=== PATIENT | male | born 1985 | race Hispanic/Latino ===

== ENCOUNTER 2022-10-17 07:16 | Observation (INO) | payer SELFPAY ==
[2022-10-17] VITALS (7 sets, daily range): BP systolic 116–130; BP diastolic 69–84; PULSE 74–102; RESP 16–18; TEMP 37.1–38.8; O2SAT 96–100
--- NOTE | ~2022-10-17 | XR_ITS ---
EXAMINATION: XR chest 1V portable INDICATION: Fever, lethargy TECHNIQUE: Portable AP chest at 0757 hours COMPARISON: None available FINDINGS: The lungs are free of acute opacities. No pleural effusion or pneumothorax. The cardiomedia stinal silhouette is normal. IMPRESSION: 1. No acute cardiopulmonary abnormality. Reviewed, dictated and finalized at location A.
--- NOTE | ~2022-10-17 | CT_ITS ---
EXAMINATION: CT abdomen pelvis w con DATE: 10/17/2022 11:24 INDICATION: Abdominal pain. TECHNIQUE: Computed tomography (CT) of the abdomen and pelvis was performed with 100 mL Omnipaque 350 intravenous contrast. Automated exposure control and iterative reconstruction technique were employe d. The dose-length product was 344.53 mGy-cm. COMPARISON: None. FINDINGS: The visualized portions of the lung bases demonstrate mild atelectasis. No pleural effusion . The heart size is normal. No pericardial effusion. The liver, gallbladder, spleen, pancreas, adrena l glands, and kidneys are normal. There are no dilated loops of bowel. The appendix is normal. There are no pathologically enlarged lymph nodes. There is no free intraperitoneal fluid. There is mild tho racolumbar spondylosis. IMPRESSION: 1. No etiology for the patient's symptoms. Reviewed, dictated and finalized at location A.
[2022-10-17 08:16] LABS: Appearance Urine Clear (Clear); Bilirubin Urine Negative (Negative); Blood Urine Negative (Negative); Color Urine Yellow (Yellow); Glucose Urine UA Negative (Negative); Ketones Urine Negative (Negative); Leukocyte Esterase Ur Negative LEU/UL (Negative); Nitrate Urine Negative (Negative); Protein Urine Negative (Negative); Specific Grav Ur 1.016 (1.001-1.035)
[2022-10-17 08:17] LABS: Hematocrit 42.2 % (42.0-52.0); Hemoglobin 14.5 g/dL (14.0-18.0); Mean Corpuscular HGB Conc 34.4 g/dl (32-36); Mean Corpuscular Volume 90.2 fl (80-100); Mean Platelet Volume 10.2 fl (7.4-10.4); Platelet Count Result 133 k/mm3 (150-375); Red Blood Count 4.68 M/mm3 (4.6-6.20); Red Cell Distribution Width 13.6 % (11.5-14.5); White Blood Count 4.3 K/mm3 (4.5-10.0)
[2022-10-17 08:19] LABS: Add Urine Microscopic? NO
--- NOTE | 2022-10-17 08:24 | ED.GENADULT ---
HPI - General Adult General Chief complaint: Skin/Abscess/Foreign Body Stated complaint: Rash Time Seen by Provider: 10/17/22 07:27 Source: patient, RN notes reviewed and old records reviewed Mode of arrival: ambulatory Limitations: no limitations History of Present Illness HPI narrative: This is a 37 year old male who presents for evaluation of a rash. Patient states he developed itching, burning rash to his face and neck on Friday. He has noticed this rash has moved to his chest pain, back and arms. He thinks it is due to oatmeal that he ate a few days. He also reports he has developed mid abdominal pain today with nausea and vomiting. He is here with a brother that also has a rash. His brother thinks his is due to poison gerardo since that do yard work. PAtient believes he has had all his immunizations. Related Data Allergies Allergy/AdvReac Type Severity Reaction Status Date / Time No Known Allergies Allergy Verified 10/17/22 07:42 Review of Systems Constitutional: Constitutional: Reports chills and Denies weakness Cardiovascular: Cardiovascular: Denies syncope, Denies rapid heart rate, Denies irregular heart rhythm, Denies leg edema and Denies dyspnea Respiratory: Respiratory: Denies chest congestion, Denies hemoptysis, Denies excessive phlegm production and Denies dyspnea Gastrointestinal: Gastrointestinal: Reports abdominal pain, Denies hematochezia, Denies diarrhea, Reports nausea and Denies vomiting Genitourinary: Genitourinary: Denies hematuria, Denies dysuria, Denies penile discharge and Denies testicular pain Musculoskeletal: Musculoskeletal: Denies joint swelling, Denies loss of height and Denies muscle weakness Integumentary/Breasts: Skin/Breast: Reports rash Neurologic: Denies syncope, Denies focal weakness and Denies weakness PMFSH Past Medical History Medical History Patient denies medical problems Surgical History Surgical History No pertinent past surgical history Family History Family History (Updated 10/17/22 @ 16:09 by Jeimy Champagne NP) Unknown No problems noted. Social History Social History (Updated 10/17/22 @ 16:09 by Jeimy A. Benhoff, FIGURE CLERK) Social History: He is single and has 2 children. He speaks very little Thai. He works for a [employer] company. Code status full code Smoking status: Never smoker Alcohol intake: current Drinks per week: 7 Substance use: never Lack of Transportation: No Lack of Food: Never True Current Housing: I Have Housing Concerned About Future Housing: No Difficulty Paying Gas/Electric Bills: No Difficulty Paying for Meds: No Currently Unemployed: No Education: High School Diploma/GED Difficulty w/ Childcare or Family Care: No Spiritual care concerns: No Exam Const: General: no acute distress and alert Nutritional Appearance: well nourished Orientation/consciousness: patient oriented x3 HENMT: Head: normal to inspection Course Reevaluation(s) Reevaluation #1: I discussed with patient and family plan to admit for further evaluation Date: 10/17/22 Time: 10:45 Vital Signs Vital signs: Vital Signs Temperature 100.2 F H 10/17/22 07:27 Pulse Rate 102 H 10/17/22 07:27 Respiratory Rate 18 10/17/22 07:27 Blood Pressure 122/69 10/17/22 07:27 Pulse Oximetry 97 10/17/22 07:27 Oxygen Delivery Room Air 10/17/22 07:27 Temperature 98.8 F 10/17/22 12:50 Pulse Rate 74 10/17/22 12:50 Respiratory Rate 18 10/17/22 12:50 Blood Pressure 118/76 10/17/22 12:50 Pulse Oximetry 96 10/17/22 12:50 Oxygen Delivery Room Air 10/17/22 14:00 Medical Decision Making MDM Narrative Medical decision making narrative: patient has rash, fever, abdominal pain. labs ordered. labs show mild transaminitis with 21 bands and although leukopenia. I think patient
[2022-10-17 08:32] LABS: Alanine Aminotransferase 90 U/L (6-50); Albumin Level 4.1 g/dL (3.5-5.1); Alkaline Phosphatase 91 U/L (38-126); Anion Gap 5 mmol/L (8-16); Aspartate Amino Transferase 87 U/L (17-59); Bilirubin,Total 0.3 mg/dL (0.2-1.3); Blood Urea Nitrogen 14 mg/dL (9-20); Calcium 8.2 mg/dL (8.4-10.2); Carbon Dioxide 29 mmol/L (22-30); Chloride 103 mmol/L (98-107); Estimated CRCL calculation 75 ml/min; Estimated Glomerular Filt Rate > 60; Glucose 95 mg/dL (65-110); Lipase 98 U/L (23-300); Sodium 137 mmol/L (137-145)
[2022-10-17 08:41] LABS: Band Neutrophils Percent 21 % (0-6); Lymphocytes Absolute Manual 0.81 K/mm3 (1.1-4.5); Metamyelocytes Percent 1 %; Monocytes Absolute Manual 0.38 K/mm3 (0.1-0.90); Monocytes Percent Manual 9 % (3-9); Neutrophils Absolute Manual 3.05 K/mm3 (1.3-6.7); Neutrophils Percent Manual 50 % (46-73); Total Cells Counted 100
[2022-10-17 08:42] LABS: Anisocytosis 1+ (NORMAL); Hypochromasia 2+ (NORMAL); Schistocytes None Seen (NORMAL); Smudge Cells PRESENT
[2022-10-17 09:36] LABS: Monoscreen Negative (Negative); Negative Monotest Control Negative (Negative); Positive Monotest Control Positive (Positive)
[2022-10-17 10:21] LABS: Influenza A QL RT-PCR Negative (Negative); Influenza B QL RT-PCR Negative (Negative); SARS-CoV-2 RNA PCR Negative (Negative)
[2022-10-17] MEDS: ACETAMINOPHEN 325 MG TABLET 650 MG PO (11:08)
[2022-10-17 12:05] LABS: Lactic Acid Reflex 0.8 mmol/L (0.7-2.0)
--- NOTE | 2022-10-17 12:11 | PC.NURSE ---
this RN called dietary and ordered lunch tray for pt at this time
[2022-10-17 12:52] LABS: Hepatitis B Surface Antigen Negative (Negative)
[2022-10-17 12:58] LABS: HAV RESULT Negative (Negative); Hepatitis B Core IgM Result Negative (Negative)
[2022-10-17 13:10] LABS: Hepatitis C Virus Antibody Negative (Negative)
--- NOTE | 2022-10-17 13:22 | PM.IMHP ---
H&P: HPI History of Present Illness Date/Time: 10/17/22 13:22 Chief Complaint: Skin abscess foreign body. Narrative: This is a 37-year-old male patient who came to the emergency room to be evaluated for rash. Patient has itching and burning on his neck, face on his, abdomen or legs. The patient also had an epigastric discomfort with nausea vomiting today. He stated that his brother also has the same rash. 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 He believes he has had all of his immunizations. The patient speaks very little Congolese. White count 4.3. Platelet 133. Ybarra neutrophils is 21. AST is 87 ALT is 90. Hepatitis panel was negative. Influenza a and B are negative. COVID negative. [place] negative. Abdomen pelvis CT was read as no etiology for patient's symptoms. It does not now or if the patient to anything [id number]. He stated he only takes Tylenol for medicine. He was given a Tylenol in the emergency room. Patient is being admitted to observation status on the date of service of 10/17/2022. Review of Systems Review of Systems: All systems reviewed & are unremarkable except as noted in HPI and below Constitutional: Constitutional: Reports as per HPI and Reports no additional constitutional complaints Eyes: Eyes: Reports as per HPI and Reports no additional eye complaints ENT: Reports system reviewed and no additional complaints, except as documented and Reports Normal hearing present Cardiovascular: Cardiovascular: Reports no additional cardiovascular complaints Respiratory: Respiratory: Reports no additional respiratory complaints and Reports no additional respiratory complaints Gastrointestinal: Gastrointestinal: Reports as per HPI and Reports no additional gastrointestinal complaints Musculoskeletal: Musculoskeletal: Reports no additional musculoskeletal complaints Integumentary/Breasts: Skin/Breast: Reports system reviewed and no additional complaints, except as docu and Reports as per HPI Neurologic: Reports system reviewed and no additional complaints, except as documented, Reports as per HPI and Reports Normal hearing present Psychiatric: Psychiatric: Reports no additional psychiatric complaints and Reports as per HPI Endocrine: Endocrine: Reports no additional endocrine complaints Hematologic/Lymphatic: Hematologic/Lymphatic: Reports no additional hematologic/lymphatic complaints Allergic/Immunologic: Allergic/Immunologic: Reports no additional allergic/immunologic complaints PMFSH Past Medical History Medical History Patient denies medical problems Surgical History Surgical History No pertinent past surgical history Family History Family History Unknown No problems noted. Social History Social History (Updated 10/17/22 @ 16:09 by Jeimy Champagne NP) Social History: He is single and has 2 children. He speaks very little Congolese. He works for a [employer]. Code status full code Smoking status: Never smoker Alcohol intake: current Drinks per week: 7 Substance use: never Lack of Transportation: No Lack of Food: Never True Current Housing: I Have Housing Concerned About Future Housing: No Difficulty Paying Gas/Electric Bills: No Difficulty Paying for Meds: No Currently Unemployed: No Education: High School Diploma/GED Difficulty w/ Childcare or Family Care: No Spiritual care concerns: No Meds Home Medications and Allergies Allergies Allergy/AdvReac Type Severity Reaction Status Date / Time No Known Allergies Allergy Verified 10/17/22 07:42 Vital Signs Vital Signs - 24 hr 10/17/22 07:27 10/17/22 09:41 10/17/22 10:58 Temperature 37.9 C H 38.8 C H Pulse Rate 102 H 85 92 Respiratory Rate 18 17 17 Blood
--- NOTE | 2022-10-17 14:05 | ADMGEN ---
This patient, Everardo Sterling, was admitted to Medical Room 248-. Patient/family oriented to hospital policies and general routines including ID bracelet, bed and alarms, visiting hours, pain management, procedures, bathroom and other care routines, personal items, smoking policy, room service/diet, and visiting hours. Information on how to activate the Rapid Response Team has been discussed. Patient/Family are encouraged to report perceived risks to care and to ask questions if they do not understand what they are told or what they should do.
[2022-10-17] MEDS: SODIUM CHLORIDE 0.9% IV 1,000 ML 125 ML IV CONT ×2 (14:40→23:16)
[2022-10-17] MEDS: ceFAZolin 1 GM/NS 50 ML 1 GM/50 ML BAG IVPB ×2 (17:04→23:16)
[2022-10-17] MEDS: methylPREDNISolone SOD SUCC 125 MG VIAL 60 MG IV PUSH (21:09)
[2022-10-17] MEDS: FAMOTIDINE 20 MG/2 ML VIAL IV PUSH (21:09)
[2022-10-18 05:19] VITALS: BP 108/58; PULSE 61; RESP 17; TEMP 36.5; O2SAT 97
[2022-10-18] MEDS: methylPREDNISolone SOD SUCC 125 MG VIAL 60 MG IV PUSH ×2 (05:24→13:31)
[2022-10-18 05:41] LABS: Basophils Percent Auto 0.5 % (0.2-1.2); Hematocrit 42.8 % (42.0-52.0); Hemoglobin 14.9 g/dL (14.0-18.0); Immature Granulocyte Absolute 0.01 K/mm3 (0.00-0.031); Immature Granulocyte Percent A 0.3 % (0-0.5); Lymphocytes Absolute Auto 1.27 K/mm3 (0.9-3.2); Lymphocytes Percent Auto 32.6 % (18.3-44.2); Mean Corpuscular HGB Conc 34.8 g/dl (32-36); Mean Corpuscular Volume 89.2 fl (80-100); Mean Platelet Volume 10.2 fl (7.4-10.4); Monocytes Absolute Auto 0.1 K/mm3 (0.1-0.6); Monocytes Percent Auto 2.6 % (2.6-8.5); Neutrophils Absolute Auto 2.5 K/mm3 (1.3-6.7); Platelet Count Result 152 k/mm3 (150-375); Red Cell Distribution Width 13.2 % (11.5-14.5); White Blood Count 3.9 K/mm3 (4.5-10.0)
[2022-10-18 05:50] LABS: Lactic Acid Reflex 1.2 mmol/L (0.7-2.0)
[2022-10-18 05:51] LABS: Alanine Aminotransferase 77 U/L (6-50); Albumin Level 3.9 g/dL (3.5-5.1); Alkaline Phosphatase 94 U/L (38-126); Anion Gap 7 mmol/L (8-16); Aspartate Amino Transferase 58 U/L (17-59); Bilirubin,Total 0.4 mg/dL (0.2-1.3); Blood Urea Nitrogen 13 mg/dL (9-20); Calcium 8.1 mg/dL (8.4-10.2); Carbon Dioxide 26 mmol/L (22-30); Chloride 104 mmol/L (98-107); Estimated CRCL calculation 92 ml/min; Estimated Glomerular Filt Rate > 60; Glucose 151 mg/dL (65-110); Magnesium 2.3 mg/dL (1.6-2.3); Sodium 137 mmol/L (137-145)
[2022-10-18 06:24] LABS: Thyroid Stimulating Hormone Reflex 0.259 uIU/mL (0.465-4.68)
[2022-10-18 06:59] LABS: Free T4 Free Thyroxine Reflex 0.99 ng/dL (0.78-2.19)
[2022-10-18 08:00] VITALS: PULSE 61; RESP 17; O2SAT 97
[2022-10-18] MEDS: ceFAZolin 1 GM/NS 50 ML 1 GM/50 ML BAG IVPB (08:20)
[2022-10-18] MEDS: SODIUM CHLORIDE 0.9% IV 1,000 ML 125 ML IV CONT (08:25)
[2022-10-18] MEDS: FAMOTIDINE 20 MG/2 ML VIAL IV PUSH (08:25)
[2022-10-18 11:13] LABS: Total Triiodothyronine (T3) 1.09 NG/ML (0.97-1.69)
[2022-10-18 12:34] LABS: CRP 2.6 mg/dL (<1.0)
[2022-10-18 13:02] LABS: Thyroid Stimulating Hormone 0.229 uIU/mL (0.465-4.680)
--- NOTE | 2022-10-18 13:54 | PCCCNOTE ---
On 10/18/22, the student, [Briseida Belle ], provided care and completed [facility] this patient. I have reviewed the student's documentation and agree with the findings.
--- NOTE | 2022-10-18 13:58 | PM.DS ---
DS: Admitting Diagnosis Discharge Date 10/18/22 Admitting Diagnosis rash and fever DS: Discharge Diagnosis Discharge Diagnosis (1) Bandemia: Code(s): D72.825 - Bandemia Status: Acute Assessment and Plan: Bands are 21. Which could be viral. Patient's hepatitis panel was negative. Influenza A/B and COVID are negative. Patient was empirically started on Ancef. Blood cultures are pending. Patient does not have appear to have a strep infection. Patient does not complain of any sore throat. (2) Dermatitis: Code(s): L30.9 - Dermatitis, unspecified Status: Acute Assessment and Plan: Patient was given Benadryl and Solu-Medrol. DS: Summary Hospital Course Hospital Course: 37-year-old male with no past medical history is presenting with a rash on his torso that he received while at work. His coworkers also had a similar rash. They worked outside in thought it was poison gerardo or some sort of contact dermatitis. However the patient started to develop a fever and did not feel well while the other workers did not get the symptoms. His workup was unrevealing of any etiology to infection. He did have leukocytosis with bandemia that responded to Ancef administration. He was also given prednisone and Benadryl for the allergic reaction suspected. All symptoms resolved and he was discharged in stable condition. Time Spent with Patient Time attestation: Total time spent providing and/or coordinating discharge services: DS: Data Data Completed and Pending Labs on day of discharge: Labs from last 24 hours 10/18/22 10/18/22 05:28 05:28 WBC 3.9 L RBC 4.80 Hgb 14.9 Hct 42.8 MCV 89.2 MCH 31.0 MCHC 34.8 RDW 13.2 Plt Count 152 MPV 10.2 Immature Gran % (Auto) 0.3 Neut % (Auto) 64.0 Lymph % (Auto) 32.6 [place] % (Auto) 2.6 Eos % (Auto) 0.0 Baso % (Auto) 0.5 Lymph # (Auto) 1.27 [place] # (Auto) 0.1 Eos # (Auto) 0.0 Baso # (Auto) 0.0 Abs Immat Gran (auto) 0.01 Absolute Neuts (auto) 2.5 Absolute Nucleated RBC 0.0 Nucleated RBC % 0.0 Sodium 137 Potassium 4.0 Chloride 104 Carbon Dioxide 26 Anion Gap 7 L BUN 13 Creatinine 0.80 Estim Creat Clear Calc 92 Estimated GFR > 60 Glucose 151 H Lactic Acid 1.2 Calcium 8.1 L Magnesium 2.3 Total Bilirubin 0.4 AST 58 ALT 77 H Alkaline Phosphatase 94 C-Reactive Protein 2.6 H Total Protein 7.0 Albumin 3.9 Procalcitonin Pending TSH 0.229 L Cancelled TSH (Reflex) 0.259 L Free T4 0.99 Total T3 1.09 Preliminary micro results at discharge 10/17/22 12:19 Blood Culture - Preliminary Blood 10/17/22 11:47 Blood Culture - Preliminary Blood Discharge Plan Discharge Attending physician on discharge: Moraima Wilburn Discharging Clinician: Moraima Wilburn Patient Disposition: Home, Self-Care Activity: as tolerated Diet: as tolerated Patient Instructions: Antibiotic Form Stand Alone Forms: General Discharge Information Follow-up/Referrals: PHYSICIAN NOT ON STAFF,NONSTAFF [Primary Care Provider] - Discharge Medications: New famotidine [Pepcid] 20 mg tablet 20 mg PO HS 30 Days Qty: 30 0RF prednisone 50 mg tablet 50 mg PO DAILY 5 Days Qty: 5 0RF cephalexin 500 mg capsule 500 mg PO Q8H 7 Days Qty: 21 0RF Date of admission: 10/17/22 11:58 Primary Care Provider: PHYSICIAN NOT ON STAFF,NONSTAFF Admitting Provider: Moraima Wilburn Attending physician on admission: Moraima Wilburn Condition: Stable
[2022-10-18 16:15] LABS: Procalcitonin 0.3 ng/mL
[2022-10-21 12:03] LABS: Varicella IgG Antibody <135.00 Index (>=165.00); Varicella IgM Antibody <=0.90 (<=0.90)
== END 2022-10-18 14:30 | disposition home or self-care (01) ==
LOC: ANHED 08:29 → ANH2MED 12:30
PROVIDERS: Nurse Practitioner; Admitting Provider Student in an Organized Health Care Education/Training Program; Emergency Provider General Practice; Visit Provider Student in an Organized Health Care Education/Training Program
DX: D72.825 Bandemia (principal); L30.9 Dermatitis, unspecified; R50.9 Fever, unspecified; R10.9 Unspecified abdominal pain; D72.829 Elevated white blood cell count, unspecified; R11.2 Nausea with vomiting, unspecified; R53.83 Other fatigue; F10.90 Alcohol use, unspecified, uncomplicated; Z20.822 Contact with and (suspected) exposure to COVID-19
CPT/HCPCS: 36415; 71045; 74177; 80053; 80074; 81003; 83605; 83690; 83735; 84145; 84439; 84443; 84480; 85025; 86140; 86308; 86787; 87040; 87636; 96361; 96365; 96375; 96376; 99285; A9270; G0378; J0690; J2930; J7030; Q9967